=== PATIENT | female | born 1995 | race Caucasian/White ===

== ENCOUNTER 2020-10-12 09:59 | Emergency (ER) | payer MEDICAID ==
[~2020-10-12] VITALS: Ht 157.5 cm; Wt 105.7 kg
[2020-10-12] MEDS ORDERED: ONDANSETRON 2MG/ML, 2ML IVPush ONE (10:30)
[2020-10-12] MEDS ORDERED: MORPHINE SULFATE 4 MG/ML, 1ML IVPush ONE (10:30)
[2020-10-12] MEDS ORDERED: SODIUM CHLORIDE 0.9% 1,000ML IVBOLUS ONE (10:30)
[2020-10-12] MEDS ORDERED: SODIUM CHLORIDE FLUSH 10ML SYR IVF ONE (10:30)
[2020-10-12] MEDS ORDERED: MORPHINE SULFATE 4 MG/ML, 1ML ONE ×2 (10:41→14:36)
[2020-10-12] MEDS ORDERED: ONDANSETRON 2MG/ML, 2ML ONE (10:41)
[2020-10-12 10:59] LABS: HCG UR SG 1.025 (1.003-1.030)
[2020-10-12 11:02] LABS: MICROSCOPIC INDICATED
[2020-10-12 12:06] LABS: BASOPHILS % (AUTO) 1 % (0-1); EOSINOPHILS % (AUTO) 4 % (1-7); LYMPHOCYTES % (AUTO) 26 % (22-44); MEAN CORPUSCULAR HEMOGLOBIN 25.4 pg (27.0-34.8); MEAN CORPUSCULAR HGB CONC 32.4 g/dL (32.4-35.8); MEAN PLATELET VOLUME 8.5 fL (7.4-10.4); MONOCYTES % (AUTO) 6 % (2-9); NEUTROPHILS % (AUTO) 63 % (42-75); PLATELET COUNT 326 x10^3/uL (130-400); RED BLOOD COUNT 4.73 x10^6/uL (3.82-5.3); RED CELL DISTRIBUTION WIDTH 17.8 % (9.6-15.2)
[2020-10-12 12:08] LABS: MD NO
[2020-10-12 12:17] LABS: ALANINE AMINOTRANSFERASE 22 U/L (12-78); ALBUMIN 3.3 g/dL (3.4-5.0); ANION GAP 6 mmol/L (5-15); CALCIUM 8.4 mg/dL (8.5-10.1); CHLORIDE 109 mmol/L (98-107); CREATININE 0.76 mg/dL (0.55-1.02)
[2020-10-12 12:19] LABS: ALKALINE PHOSPHATASE 84 U/L (45-117); BILIRUBIN,TOTAL 0.3 mg/dL (0.2-1.0); TOTAL PROTEIN 7.3 g/dL (6.4-8.2)
--- NOTE | 2020-10-12 13:36 | NUR ---
DIANA BAUTISTA. RECEIVED REPORT FROM LISA BAUTISTA AT THIS TIME. PT IN CT
[2020-10-12] MEDS ORDERED: OMNIPAQUE 350 MG/ML, 100ML BOTTLE ONE (13:39)
[2020-10-12 14:06] VITALS: BP 134/72
--- NOTE | 2020-10-12 14:07 | NUR ---
BREAK RN. PT BACK FROM CT. AWAITING RECHECK BY ERP. PT REQUEST TO USE RESTROOM, OKAY PER ERP DR. WHITE FOR PT TO AMBULATE TO RESTROOM. AMBULATORY WITH STEADY GAIT TO RESTROOM. BACK IN BED. RESTING COMFORTABLY USING ON LJ DEVICE. REFUSES NEED FOR PAIN MEDICATION, RATES PAIN 4/10 "JUST WHEN I MOVE IT HURTS." VSS. CALL LIGHT IN REACH. FALL PRECAUTIONS IN PLACE.
--- NOTE | 2020-10-12 14:13 | NUR ---
BREAK RN. BEDSIDE REPORT AND CARE BACK TO PRIMARY RN LISA AT THIS TIME. DR. WHITE AT BEDSIDE FOR RECHECK.
== END 2020-10-12 14:56 | disposition home or self-care (01) ==
LOC: ED 12:53
DX: R10.32 Left lower quadrant pain (principal)
CPT/HCPCS: 36415; 74177; 80053; 81001; 81025; 83690; 85025; 87086; 96361; 96374; 96375; 99285; J2270; J2405; J7030; Q9967

== ENCOUNTER 2020-10-13 02:33 | Observation (INO) | payer MEDICAID ==
[~2020-10-13] VITALS: Ht 157.5 cm; Wt 105.0 kg
[2020-10-13] MEDS ORDERED: ONDANSETRON 2MG/ML, 2ML IVPush ONE (03:00)
[2020-10-13] MEDS ORDERED: MORPHINE SULFATE 4 MG/ML, 1ML IVPush PRN ×2 (03:00→03:30)
[2020-10-13 03:10] LABS: BASOPHILS % (AUTO) 1 % (0-1); EOSINOPHILS % (AUTO) 2 % (1-7); LYMPHOCYTES % (AUTO) 30 % (22-44); MD NO; MEAN CORPUSCULAR HEMOGLOBIN 25.4 pg (27.0-34.8); MEAN CORPUSCULAR HGB CONC 32.8 g/dL (32.4-35.8); MEAN PLATELET VOLUME 8.3 fL (7.4-10.4); MONOCYTES % (AUTO) 8 % (2-9); NEUTROPHILS % (AUTO) 60 % (42-75); PLATELET COUNT 385 x10^3/uL (130-400); RED BLOOD COUNT 4.89 x10^6/uL (3.82-5.3); RED CELL DISTRIBUTION WIDTH 17.4 % (9.6-15.2)
[2020-10-13 03:21] LABS: ALBUMIN 3.5 g/dL (3.4-5.0); ANION GAP 8 mmol/L (5-15); CALCIUM 8.7 mg/dL (8.5-10.1); CHLORIDE 107 mmol/L (98-107); CREATININE 0.91 mg/dL (0.55-1.02)
[2020-10-13] MEDS ORDERED: CEFTRIAXONE PMX 1GM/50ML 50 ML ONE (03:24)
[2020-10-13] MEDS ORDERED: ONDANSETRON 2MG/ML, 2ML ONE ×2 (03:24→05:23)
[2020-10-13] MEDS ORDERED: MORPHINE SULFATE 4 MG/ML, 1ML ONE (03:25)
[2020-10-13] MEDS ORDERED: ONDANSETRON 2MG/ML, 2ML IVPush PRN ×2 (03:30→06:30)
[2020-10-13] MEDS ORDERED: CEFTRIAXONE PMX 1GM/50ML 50 ML IV ONE (03:30)
[2020-10-13] MEDS ORDERED: SODIUM CHLORIDE 0.9% 1,000 ML IV ONE (03:30)
[2020-10-13 03:37] LABS: MICROSCOPIC INDICATED
[2020-10-13] MEDS ORDERED: BUPIVACAINE/PF-EPI 0.5% 1:200K ONE (03:37)
--- NOTE | 2020-10-13 04:03 | NUR ---
PT STATES FAMILY HX MH CHANGED IN TRAIGE NOTE ALSO CALLED OR NOTIFED RN MARISOL OF PT HX MH PT WITH BRACLETT LT WRIST WITH HX OF ON IT.....
[2020-10-13 04:47] VITALS: BP 140/84
[2020-10-13] MEDS ORDERED: FENTANYL PF 250 MCG/5ML ONE (05:09)
[2020-10-13] MEDS ORDERED: MIDAZOLAM 1 MG/ML, 2ML ONE (05:09)
[2020-10-13] MEDS ORDERED: PROPOFOL 10 MG/ML, 20ML ONE (05:23)
[2020-10-13] MEDS ORDERED: CEFOTETAN 2 GM ONE (05:23)
[2020-10-13] MEDS ORDERED: DEXAMETHASONE 4 MG/ML, 1ML ONE (05:23)
[2020-10-13] MEDS ORDERED: ROCURONIUM 10 MG/ML,10ML ONE (05:23)
[2020-10-13] MEDS ORDERED: SUGAMMADEX 200 MG/2 ML IVPush ONE (05:23)
[2020-10-13] MEDS ORDERED: BUPIVACAINE/PF-EPI 0.5% 1:200K INFIL ONE (05:51)
[2020-10-13] MEDS ORDERED: OXYcodone 5 MG/5 ML ORAL.SOL UDC ONE (06:17)
[2020-10-13] MEDS ORDERED: MEPERIDINE/PF 25MG/ML,1ML ONE (06:18)
[2020-10-13] MEDS ORDERED: ACETAMINOPHEN 325 MG TABLET PO PRN (06:30)
[2020-10-13] MEDS ORDERED: PROMETHAZINE 12.5 MG SUPP PR PRN (06:30)
[2020-10-13] MEDS ORDERED: PROMETHAZINE 25 MG/ML, 1ML IVPush PRN (06:30)
[2020-10-13] MEDS ORDERED: DIAZEPAM 5 MG/ML, 2ML IVPush PRN (06:30)
[2020-10-13] MEDS ORDERED: hydrALAzine 20 MG/ML, 1ML IV PRN (06:30)
[2020-10-13] MEDS ORDERED: ALBUTEROL SULFATE 2.5 MG/3 ML NPPB PRN (06:30)
[2020-10-13] MEDS ORDERED: MIDAZOLAM 1 MG/ML, 2ML IV PRN (06:30)
[2020-10-13] MEDS ORDERED: EPHEDRINE 50 MG/ML, 1ML IVPush PRN (06:30)
[2020-10-13] MEDS ORDERED: DIPHENHYDRAMINE 50 MG/ML, 1ML IVPush PRN (06:30)
[2020-10-13] MEDS ORDERED: OXYcodone 5 MG/5 ML ORAL.SOL UDC PO PRN (06:30)
[2020-10-13] MEDS ORDERED: LABETALOL 5MG/ML, 20ML IV PRN (06:30)
[2020-10-13] MEDS ORDERED: MEPERIDINE/PF 25MG/0.5ML IVPush PRN (06:30)
[2020-10-13] MEDS ORDERED: HYDROmorphone 1 MG/ML, 1ML INJ IVPush PRN (06:30)
[2020-10-13] MEDS ORDERED: FENTANYL PF 100 MCG/2ML ONE (06:37)
[2020-10-13] MEDS: FENTANYL PF 100 MCG/2ML IV PRN ×2 (06:39→07:00)
== END 2020-10-13 08:35 | disposition home or self-care (01) ==
LOC: ED 03:03 → INTOOBSV 03:43 → EDIP 03:43
PROVIDERS: ADMIT Surgery; ATTEND Surgery
DX: K35.80 Unspecified acute appendicitis (principal); Z20.828 Contact with and (suspected) exposure to other viral communicable diseases; N39.0 Urinary tract infection, site not specified; F41.8 Other specified anxiety disorders; F42.9 Obsessive-compulsive disorder, unspecified
CPT/HCPCS: 36415; 44970; 80048; 81001; 82040; 85025; 87086; 87635; 88304; 96365; 96375; 99284; G0378; J0696; J1100; J2175; J2250; J2270; J2405; J2704; J3010; J7030

== ENCOUNTER 2020-10-14 03:39 | Emergency (ER) | payer MEDICAID ==
[~2020-10-14] VITALS: Ht 157.5 cm; Wt 104.0 kg
--- NOTE | 2020-10-14 04:38 | NUR ---
THIS IS A 25Y F THAT COMES IN FOR ABD PAIN FOLLOWING APPY THIS AM. PT STS PAIN IN RLQ AND RUQ AND RADIATING TO SHOULDER/ SHOULDER BLADE. HAS TAKEN ONE PERCOCET 5/325 AT HOME ABOUT AN HOUR AND A HALF AGO WITH NO IMPROVEMENT. PT CHANGING INTO GOWN. SPOUSE AT BEDSIDE AWAITING ORDERS AT THIS TIME
[2020-10-14] MEDS ORDERED: ONDANSETRON 2MG/ML, 2ML ONE (05:10)
[2020-10-14] MEDS ORDERED: HYDROmorphone 1 MG/ML, 1ML INJ ONE (05:10)
--- NOTE | 2020-10-14 05:17 | NUR ---
LAB AT BEDSIDE FOR DRAW AND CULTURES
--- NOTE | 2020-10-14 05:26 | NUR ---
PIV STARTED, PT MEDICATED PER MAR
--- NOTE | 2020-10-14 05:29 | NUR ---
PT TO XRAY AT THIS TIME
[2020-10-14] MEDS ORDERED: HYDROmorphone 1 MG/ML, 1ML INJ IVPush PRN (05:30)
[2020-10-14] MEDS ORDERED: SODIUM CHLORIDE FLUSH 10ML SYR IVF ONE (05:30)
[2020-10-14] MEDS ORDERED: ONDANSETRON 2MG/ML, 2ML IVPush ONE (05:30)
[2020-10-14 05:51] LABS: BASOPHILS % (AUTO) 0 % (0-1); EOSINOPHILS % (AUTO) 0 % (1-7); LYMPHOCYTES % (AUTO) 18 % (22-44); MEAN CORPUSCULAR HEMOGLOBIN 25.2 pg (27.0-34.8); MEAN CORPUSCULAR HGB CONC 32.7 g/dL (32.4-35.8); MEAN PLATELET VOLUME 8.5 fL (7.4-10.4); MONOCYTES % (AUTO) 10 % (2-9); NEUTROPHILS % (AUTO) 72 % (42-75); PLATELET COUNT 402 x10^3/uL (130-400); RED BLOOD COUNT 4.68 x10^6/uL (3.82-5.3); RED CELL DISTRIBUTION WIDTH 17.1 % (9.6-15.2)
[2020-10-14 06:02] LABS: ALANINE AMINOTRANSFERASE 20 U/L (12-78); ALBUMIN 3.6 g/dL (3.4-5.0); ANION GAP 8 mmol/L (5-15); CALCIUM 9.3 mg/dL (8.5-10.1); CHLORIDE 108 mmol/L (98-107); CREATININE 0.85 mg/dL (0.55-1.02)
[2020-10-14 06:04] LABS: ALKALINE PHOSPHATASE 81 U/L (45-117); BILIRUBIN,TOTAL 0.4 mg/dL (0.2-1.0); MD NO; TOTAL PROTEIN 7.7 g/dL (6.4-8.2)
--- NOTE | 2020-10-14 06:11 | NUR ---
PT EDUCATED ON NEED FOR URINE SAMPLE, STATES SHE CANNOT GO AT THIS TIME
[2020-10-14] MEDS ORDERED: SODIUM CHLORIDE 0.9% 1,000ML IVBOLUS ONE (06:30)
--- NOTE | 2020-10-14 06:45 | NUR ---
UP TO RESTROOM FOR URINE SAMPLE AT THIS TIME
--- NOTE | 2020-10-14 07:23 | NUR ---
UA SAMPLE OBTAINED AND SENT TO LAB, PT STATES MUCH PAIN RELEIF, "NOW IM JUST TIRED". MOM AT BEDSIDE, NAD NOTED
[2020-10-14 07:42] LABS: MICROSCOPIC AUTO
[2020-10-14] MEDS ORDERED: OMNIPAQUE 350 MG/ML, 100ML BOTTLE ONE (08:50)
--- NOTE | 2020-10-14 09:13 | NUR ---
PT NOW BACK FROM CT, RESTING ON ALONSO SHETTY, NAD
[2020-10-14 09:46] VITALS: BP 138/71
== END 2020-10-14 09:55 | disposition home or self-care (01) ==
LOC: ED 05:45
DX: R10.31 Right lower quadrant pain (principal); R10.11 Right upper quadrant pain; R11.0 Nausea; Z90.49 Acquired absence of other specified parts of digestive tract
CPT/HCPCS: 36415; 74022; 74177; 80053; 81001; 81025; 83690; 85025; 87040; 96374; 96375; 99285; J1170; J2405; Q9967

== ENCOUNTER 2020-12-15 09:16 | Emergency (ER) | payer MEDICAID ==
[~2020-12-15] VITALS: Ht 157.5 cm; Wt 105.2 kg
--- NOTE | 2020-12-15 09:37 | NUR ---
PT HAS UTI SYMPTOMS. INCREASED FREQUENCY, RIGHT FLANK TENDERNESS, BLADDER PAIN, NAUSEA. SYMPTOMS FOR 7 DAYS. WAS PLACED ON CIPRO, SYMPTOMS UNRESOLVED. UA COLLECTED/ SENT.
[2020-12-15] MEDS ORDERED: ONDANSETRON 2MG/ML, 2ML ONE (09:55)
[2020-12-15] MEDS ORDERED: ONDANSETRON 2MG/ML, 2ML IVPush ONE (10:00)
[2020-12-15] MEDS ORDERED: SODIUM CHLORIDE 0.9% 1,000ML IVBOLUS ONE (10:00)
[2020-12-15 10:04] LABS: MICROSCOPIC INDICATED
[2020-12-15 10:12] LABS: BASOPHILS % (AUTO) 1 % (0-1); EOSINOPHILS % (AUTO) 1 % (1-7); LYMPHOCYTES % (AUTO) 17 % (22-44); MEAN CORPUSCULAR HEMOGLOBIN 25.8 pg (27.0-34.8); MEAN CORPUSCULAR HGB CONC 32.9 g/dL (32.4-35.8); MEAN PLATELET VOLUME 8.5 fL (7.4-10.4); MONOCYTES % (AUTO) 4 % (2-9); NEUTROPHILS % (AUTO) 76 % (42-75); PLATELET COUNT 390 x10^3/uL (130-400); RED BLOOD COUNT 4.93 x10^6/uL (3.82-5.3); RED CELL DISTRIBUTION WIDTH 16.6 % (9.6-15.2)
[2020-12-15 10:13] LABS: MD NO
[2020-12-15 10:18] LABS: ALBUMIN 3.9 g/dL (3.4-5.0); ANION GAP 7 mmol/L (5-15); CALCIUM 10.1 mg/dL (8.5-10.1); CHLORIDE 108 mmol/L (98-107); CREATININE 0.89 mg/dL (0.55-1.02)
[2020-12-15 11:22] VITALS: BP 134/78
--- NOTE | 2020-12-15 11:23 | NUR ---
Patient/Caregiver given discharge instructions and they have confirmed that they understand the instructions. Patient ambulatory with steady gait.
== END 2020-12-15 11:24 | disposition home or self-care (01) ==
LOC: ED 09:35
DX: N30.00 Acute cystitis without hematuria (principal); R30.0 Dysuria; R10.9 Unspecified abdominal pain; R11.2 Nausea with vomiting, unspecified
CPT/HCPCS: 36415; 80048; 81001; 82040; 84703; 85025; 87086; 96361; 96374; 99283; J2405; J7030